=== PATIENT | female | born 1995 | race Two or more races ===

== ENCOUNTER 2025-03-21 07:55 | Day surgery (SDC) | payer BC, OTHER ==
[2025-03-21] MEDS ORDERED: Ketorolac 30 MG/ML SDV IVPUSH ONE (07:56)
[2025-03-21] MEDS ORDERED: diphenhydrAMINE 50 MG/ML SDV IVPUSH ONE (07:56)
[2025-03-21] MEDS ORDERED: Glycopyrrolate 0.2 MG/ML 5 ML MDV IV ONE (07:56)
[2025-03-21] MEDS ORDERED: Succinylcholine 200 MG/10 ML MDV IV ONE (07:56)
[2025-03-21] MEDS ORDERED: Dexamethasone 4 MG/ML 5 ML MDV IVPUSH ONE (07:56)
[2025-03-21] MEDS ORDERED: Lidocaine 2% 100 MG/5 ML Syringe IVPUSH ONE (07:56)
[2025-03-21] MEDS ORDERED: Lactated Ringers 1,000 ML IV ONE (07:56)
[2025-03-21] MEDS ORDERED: Ondansetron 4 MG/2 ML SDV IVPUSH ONE (07:56)
[2025-03-21] MEDS ORDERED: Rocuronium 100 MG/10 ML MDV IV ONE (07:56)
[2025-03-21] MEDS ORDERED: Midazolam 1 MG/ML 2 ML SDV IV ONE (07:56)
[2025-03-21] MEDS ORDERED: fentaNYL 100 MCG/2 ML SDV IV ONE (07:56)
[2025-03-21] MEDS ORDERED: Propofol 200 MG/20 ML SDV IV ONE (07:56)
[2025-03-21] MEDS ORDERED: Neostigmine Methylsulfate 10 MG/10 ML MDV IVPUSH ONE (07:56)
[2025-03-21] MEDS ORDERED: Sodium Chloride 0.9% 10 ML Syringe FLUSH PRN (08:15)
[2025-03-21] MEDS: Acetaminophen 500 MG Tab PO ONE (10:01)
[2025-03-21] MEDS: ceFAZolin 2 GM Vial IVPUSH ONE (10:01)
[2025-03-21] MEDS: Gabapentin 300 MG Cap PO ONE (10:01)
[2025-03-21] MEDS: Lactated Ringers 1,000 ML IV SCH (10:07)
[2025-03-21] MEDS: Bupivacaine 0.5%/EPINEPHrine 1:200,000 30 ML SDV INJECT ONE (10:27)
[2025-03-21] MEDS: Acetaminophen/HYDROcodone 325-5 MG Tab PO ONE (12:47)
== END 2025-03-21 13:27 | disposition home or self-care (01) ==
LOC: FB.SDS 07:55
PROVIDERS: ATTEND Surgery
DX: K80.10 Calculus of gallbladder with chronic cholecystitis without obstruction (principal); J45.998 Other asthma; Z79.899 Other long term (current) drug therapy; Z91.013 Allergy to seafood
CPT/HCPCS: 00790; 47562; 81025; 88304; A9270; J0330; J0690; J1100; J1200; J1596; J1885; J2250; J2405; J2704; J2710; J3010; J3490; J7120